=== PATIENT | male | born 1985 | race Caucasian/White ===

== ENCOUNTER 2019-04-23 16:04 | Emergency (ER) | payer MEDICAID ==
[~2019-04-23] VITALS: Ht 170.2 cm; Wt 89.8 kg
[~2019-04-23 16:04] MED LIST: AMOX1TAB64 PO; OMEP-110 PO
[2019-04-23 16:11] VITALS: BP 133/80
== END 2019-04-23 16:34 ==
LOC: ED 16:25
DX: R11.2 Nausea with vomiting, unspecified (principal)
CPT/HCPCS: 99281

== ENCOUNTER 2019-04-26 20:58 | Emergency (ER) | payer MEDICAID ==
[~2019-04-26] VITALS: Ht 170.2 cm; Wt 88.7 kg
[2019-04-26 21:00] VITALS: BP 121/72
== END 2019-04-26 21:42 | disposition home or self-care (01) ==
LOC: ED 21:20
DX: S29.012A Strain of muscle and tendon of back wall of thorax, initial encounter (principal); F17.210 Nicotine dependence, cigarettes, uncomplicated; X58.XXXA Exposure to other specified factors, initial encounter; Y93.89 Activity, other specified; Y92.89 Other specified places as the place of occurrence of the external cause; Y99.8 Other external cause status
CPT/HCPCS: 99406

== ENCOUNTER 2020-07-18 08:06 | Emergency (ER) | payer MEDICAID ==
[~2020-07-18] VITALS: Ht 170.2 cm; Wt 89.9 kg
[2020-07-18 08:08] VITALS: BP 132/78
== END 2020-07-18 08:48 | disposition home or self-care (01) ==
LOC: ED 08:30
DX: S29.012A Strain of muscle and tendon of back wall of thorax, initial encounter (principal); F17.200 Nicotine dependence, unspecified, uncomplicated; X58.XXXA Exposure to other specified factors, initial encounter; Y93.89 Activity, other specified; Y92.89 Other specified places as the place of occurrence of the external cause; Y99.8 Other external cause status
CPT/HCPCS: 99282

== ENCOUNTER 2020-10-19 11:39 | Emergency (ER) | payer MEDICAID ==
[~2020-10-19] VITALS: Ht 170.2 cm; Wt 91.5 kg
--- NOTE | 2020-10-19 12:42 | NUR ---
FOLLOW UP CLERK: PT TO ROOM FROM LOBBY
--- NOTE | 2020-10-19 12:45 | NUR ---
GLOVE TURNER: PT TO ROOM FROM VIVIANA SCHAFER
[2020-10-19] MEDS ORDERED: LIDOCAINE 1%, 10ML INFIL ONE (13:00)
--- NOTE | 2020-10-19 13:18 | NUR ---
PT. IS A & O X 4 WITH A GCS OF 15. PT. HAS C/O A WOUND TO HIS RIGHT BUTTOCKS, X 1 WEEK. PT. REPORTS THAT IS RUPTURED X 1 WEEK AGO BUT CONTINUES TO DRAIN. PT. IS IN NO ACUTE DISTRESS. RESTING WITHOUT CONCERNS.
[2020-10-19] MEDS ORDERED: LIDOCAINE-MPF 1%, 5ML ONE (13:40)
--- NOTE | 2020-10-19 14:37 | NUR ---
Patient/Caregiver given discharge instructions and they have confirmed that they understand the instructions. Patient ambulatory with steady gait. NAD, all questions answered appropriately, denies additional needs at this time. No personal belongings left in room after discharge.
[2020-10-19 14:38] VITALS: BP 121/72
== END 2020-10-19 14:40 | disposition home or self-care (01) ==
LOC: ED 14:15
DX: L02.31 Cutaneous abscess of buttock (principal); F17.210 Nicotine dependence, cigarettes, uncomplicated
CPT/HCPCS: 99283; 99406